=== PATIENT | male | born 1960 | race Caucasian/White ===

== ENCOUNTER 2019-12-05 21:43 | Emergency (ER) | payer BC, SELFPAY ==
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
[2019-12-05] MEDS: Ondansetron 4 MG/2 ML Vial IV (22:22)
[2019-12-05 23:35] VITALS: BP 99/68; PULSE 56; RESP 16; O2SAT 99
== END 2019-12-05 23:36 | disposition home or self-care (01) ==
CPT/HCPCS: 94760; 96374; 99283; 99285; J2405